=== PATIENT | female | born 1985 | race Caucasian/White ===

== ENCOUNTER 2023-08-09 11:47 | Emergency (ER) | payer MEDICARE, OTHER, SELFPAY ==
[2023-08-09] VITALS (8 sets, daily range): BP systolic 126–175; BP diastolic 88–126; PULSE 71–95; RESP 16–18; TEMP 36.7–37.2; O2SAT 94–98; BMI 25.7
--- NOTE | 2023-08-09 12:12 | CT_ITS ---
PROCEDURE INFORMATION: Exam: CT Head Without Contrast Exam date and time: 08/09/2023 1:37 PM Age: 38 years old Clinical indication: Pain; Headache; Additional info: Left sided headache, vision change papilledema per od TECHNIQUE: Imaging protocol: Computed tomography of the head without contrast. Radiation optimization: All CT scans at this facility use at least one of these dose optimization techniques: automated exposure control; mA and/or kV adjustment per patient size (includes targeted exams where dose is matched to clinical indication); or iterative reconstruction. REPORTING DATA: Count of CT and Cardiac NM exams in prior 12 months: This patient has received 0 known CTs and 0 known cardiac nuclear medicine studies in the 12 months prior to the current study. COMPARISON: No relevant prior studies available. FINDINGS: Brain: There is asymmetric enlargement and low lying of the right cerebellar tonsil. Further evaluation with brain MRI is recommended. No evidence of acute parenchymal hemorrhage or extra-axial collection. Cerebral ventricles: There is a normal-variant cavum septum pellucidum. The ventricles, sulci and cisterns are normal in size and configuration. No hydrocephalus or midline structure shift Pituitary gland and sella: Sellar/parasellar structures, orbits and craniocervical junction are unremarkable Paranasal sinuses: Visualized sinuses are unremarkable. No fluid levels. Mastoid air cells: Visualized mastoid air cells are well aerated. Bones/joints: No calvarial fracture Soft tissues: Unremarkable. IMPRESSION: There is asymmetric enlargement and low lying of the right cerebellar tonsil. This is of unclear clinical significance. Further evaluation with brain MRI is recommended. Otherwise, no acute intracranial abnormality.
--- NOTE | 2023-08-09 12:23 | HMH.EDGENADL ---
Discharge Plan Disposition Patient Disposition: Xfer Short-Term Hosp Condition: Good Chief Complaint: Eye Problems Prescriptions Prescriptions: No Action fluoxetine 40 mg capsule 40 mg PO DAILY Patient Comments: TAKE ONE CAPSULE BY MOUTH EVERY DAY IN THE EVENING Referrals Follow up/Referrals: Britany Chan [Primary Care Provider] - See instructions Activity Restrictions/Add. Instructions Additional Instructions/Restrictions: Go directly to [facility] for evaluation of swelling of the optic nerve. Clinical Impressions Clinical Impression: Papilledema, Decreased vision of left eye Stand Alone Forms Stand Alone Forms: Work/School Release, Transfer Record - ED Discharge ED Provider: Pietro Freeman General Adult HPI General Chief complaint: Eye Problems Stated complaint: phy ref, h/a Time Seen by Provider: 08/09/23 12:07 Mode of Arrival: Ambulatory Source of Information: Patient Limitations: No Limitations Description of Symptoms (Recalled from ER Triage Doc. by RN): 38 yo F presents from eye doc office for further eval. pt reports eye doc otld her she has swelling behind the left eye. pt was being seen for routine check up. pt states over the past month she has been having blurry vision. History of Present Illness HPI narrative: This 38-year-old female with history of depression presents to the emergency department from her eye doctor for concerns of swelling of the nerve behind the left eye. Patient reports more than a month of blurry vision as well as headaches and her eye doctor has evaluated her and it is reportedly concerned for nerve swelling and told her to come to the ER for a CT scan. Patient denies any other associated symptoms. She has had worsening of her left eye vision progressively over the last month. She wears glasses at baseline. No pain in the left eye. She denies any numbness, tingling, or weakness Related Data Home Medications Medication Instructions Recorded Confirmed fluoxetine 40 mg capsule 40 mg PO DAILY 08/09/23 08/09/23 Allergies Allergy/AdvReac Type Severity Reaction Status Date / Time No Known Allergies Allergy Verified 08/09/23 12:13 [facility] Disclaimer: The information contained in this section may have been updated after the patient was seen, as this information can be updated by other users. Social History Smoking Status: Never smoker alcohol intake: never current occupational status: other Travel in the last 8 weeks: None ROS Obtained: Yes All systems reviewed & no additional complaints except as documented Constitutional Constitutional: Denies chills, Denies fever(s), Reports headache(s) and Denies weakness Eyes Eyes: Reports change in vision and Denies sensitivity to light ENT Ears, Nose, Mouth, and Throat: Denies dizziness, Reports headache(s), Denies nasal congestion and Denies sore throat Cardiovascular Cardiovascular: Denies chest pain, Denies dyspnea and Denies leg edema Respiratory Respiratory: Denies cough and Denies dyspnea Gastrointestinal Gastrointestingal: Denies abdominal pain, constipation, diarrhea, nausea or vomiting Genitourinary Female Genitourinary: Denies dysuria Musculoskeletal Musculoskeletal: Denies arthralgias, Denies myalgias, Denies numbness and Denies tingling Integumentary/Breasts Skin/Breast: Denies change in pigmentation Neurologic Neurologic: Denies dizziness, Reports headache(s), Denies numbness, Denies tingling and Denies weakness Physical Exam General General appearance: alert and in no apparent distress Head Head exam: atraumatic and normocephalic Eye Eye exam: Present PERRL, EOMI and other (OS vision 20/200 pressure 14 mmHg, OD vision 20/40 pressure 12 mmHg) ENT ENT exam: Present mucous membranes moist Neck Neck exam: Present normal inspection and full ROM Chest Chest inspection: Present symmetric chest wall rise Respiratory Respiratory exam: Present normal lung sounds bilater
--- NOTE | 2023-08-09 12:36 | PC.NURSE ---
pt ambulated to bathroom
[2023-08-09 13:05] LABS: Urine Pregnancy, HCG Qual. Negative (Negative)
--- NOTE | 2023-08-09 14:08 | PC.NURSE ---
placed call to [facility] for [facility], they are to call back.
== END 2023-08-09 15:03 | disposition short-term general hospital (02) ==
PROVIDERS: Emergency Provider Emergency Medicine; PCP Nurse Practitioner Family
DX: H47.10 Unspecified papilledema (principal); H54.62 Unqualified visual loss, left eye, normal vision right eye
CPT/HCPCS: 70450; 81025; 99284

== ENCOUNTER → 2023-08-29 07:59 | Outpatient (CLI) | payer MEDICARE, OTHER, SELFPAY ==
--- NOTE | 2023-08-29 08:05 | MR_ITS ---
FINAL REPORT CLINICAL HISTORY: CONGENITAL ANOMALY OF BRAIN. BLURRED VISION OUT OF LEFT EYE. HEADACHE COMPARISON: CT brain 08/09/2023 FINDINGS: Multiplanar MR imaging of the brain was performed without contrast. There is a somewhat low-lying right cerebellar tonsil without evidence of Chiari malformation. There is no evidence of intracranial hemorrhage or mass. The ventricular size is normal. There is no evidence of shift of the midline structures. No abnormal extra-axial fluid collection is identified. The posterior fossa and brainstem have an unremarkable appearance. No area of abnormal restricted diffusion is identified. Normal major vessel vascular flow voids are seen. There is asymmetry of the skull with the left skull base elevated in relation to the right. 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 IMPRESSION: Unremarkable brain with no acute intracranial abnormality. Reviewed, Interpreted and Dictated by Mike Quick III, MD Transcribed by Janice Back Authenticated and . [facility]
== END ==
PROVIDERS: PCP Nurse Practitioner Family; Visit Provider Nurse Practitioner Family
DX: Q04.9 Congenital malformation of brain, unspecified (principal)
CPT/HCPCS: 70551